=== PATIENT | male | born 1990 | race African-American/Black ===

== ENCOUNTER 2019-10-13 14:33 | Emergency (ER) | payer OTHER ==
[2019-10-13 14:49] VITALS: BP 140/67
--- NOTE | 2019-10-13 15:41 | ER Document Report ---
ED General - General Chief Complaint: Other Stated Complaint: POSSIBLE COVID EXPOSURE Time Seen by Provider: 10/13/19 15:01 Mode of Arrival: Ambulatory Information source: Patient Notes: 29-year-old male with no previous medical problems presents to the emergency room after a positive COVID-19 exposure. Patient states he was [place] a [place] a little over 2 weeks ago and was called 2 days ago by one of the other attendees and was told that they tested positive for COVID 19. Patient is currently asymptomatic. He denies any nausea, vomiting, shortness of breath, no difficulty breathing, no diarrhea. No recent travel. Patient is here to determine whether or not he needs COVID-19 testing. TRAVEL OUTSIDE OF THE [place] IN LAST 30 DAYS: No Past Medical History - General Information source: Patient - Social History Smoking Status: Never Smoker Frequency of alcohol use: Occasional Drug Abuse: None Family History: Reviewed & Not Pertinent Patient has homicidal ideation: No Review of Systems - Review of Systems Constitutional: No symptoms reported EENT: No symptoms reported Cardiovascular: No symptoms reported Respiratory: No symptoms reported Gastrointestinal: No symptoms reported Genitourinary: No symptoms reported Musculoskeletal: No symptoms reported Skin: No symptoms reported Neurological/Psychological: No symptoms reported -: Yes All other systems reviewed and negative Physical Exam - Vital signs Vitals: Temp Pulse Resp BP Pulse Ox 98.3 F 83 16 140/67 H 100 10/13/19 14:48 10/13/19 14:48 10/13/19 14:48 10/13/19 14:48 10/13/19 14:48 - Notes Notes: VITAL SIGNS: Within normal limits. GENERAL: Mild acute distress, non-toxic appearance. HEAD: Normal with no signs of head trauma. EYES: PERRLA, EOMI, conjunctiva normal, no discharge. EARS: Hearing grossly intact. NOSE: Normal. THROAT: Oropharynx is normal. NECK: Normal range of motion, no tenderness, supple, no lymphadenopathy, No adenopathy, no JVD. CHEST: Clear breath sounds bilaterally. No wheezes, rales, or rhonchi. CARDIAC: Regular rate and rhythm. S1 and S2, without murmurs, gallops, or rubs. VASCULAR: No Edema. Peripheral pulses normal and equal in all extremities. ABDOMEN: Normal and soft with no tenderness, no masses or pulsatile masses. GASTROINTESTINAL: Bowel sounds normal GENITOURINARY: Normal, No tenderness LYMPATHTIC: No lymphadenopathy noted. MUSCULOSKELETAL: Good range of motion of all major joints. Extremities without clubbing, cyanosis or edema. NEUROLOGICAL: Alert and oriented x 3. No focal sensory or strength deficits. Speech normal. Follows commands appropriately. PSYCHIATRIC: Normal Affect, judgement and mood. SKIN: Normal appearance with no rashes or lesions. Course - Re-evaluation Re-evalutation: 10/13/19 15:38 Patient is currently asymptomatic. His positive COVID-19 exposure was over 2 weeks. Discussed with patient that he is asymptomatic his exposure was greater than 2 weeks ago. That we could test him for COVID-19 but he does not meet criteria at this time. Patient is aware that if we do test him he would need to self quarantine for 14 days or until he receives his negative test results. Patient chose not to be tested for COVID-19. Outpatient follow-up with primary care physician if he has any other concerns or questions. Patient was given strict return to the emergency room guidelines. Return for any new or worsening symptoms. All questions were answered. Patient verbalized understanding and agrees with plan of care. 10/13/19 18:38 - Vital Signs Vital signs: Temp Pulse Resp BP Pulse Ox 98.3 F 83 16 140/67 H 100 10/13/19 14:48 10/13/19 14:48 10/13/19 14:48 10/13/19 14:48 10/13/19 14:48 Discharge - Discharge Clinical Impression: Examination Condition: Stable Disposition: HOME, SELF-CARE Instructions: Normal Exam and Workup (OM) Additional Instructions: You do not meet criteria for COVID-19 testing. If you develop any fever, cough, shortness of breath, nausea, vomiting, or any new symptoms return to the emergency room.
== END 2019-10-13 15:44 | disposition home or self-care (01) ==
LOC: ER 14:33
DX: Z20.828 Contact with and (suspected) exposure to other viral communicable diseases (principal)
CPT/HCPCS: 99281